=== PATIENT | female | born 1950 | race Asian ===

== ENCOUNTER 2021-08-12 11:55 | Emergency (ER) | payer OTHER, SELFPAY ==
[~2021-08-12] VITALS: Ht 152.4 cm; Wt 59.0 kg
--- NOTE | 2021-08-12 12:14 | NUR ---
PT AMBULATED TO ER BED 2 WITH A STEADY GAIT.
[2021-08-12 12:24] VITALS: BP 134/77
--- NOTE | 2021-08-12 12:30 | NUR ---
70 Y/O FEMALE C/O COUGH AND SUBJECTIVE FEVER X3DAYS. PT STATES SHE RECENTLY TRAVELLED TO [place]. DENIES N/V/D. DENIES PAIN. DENIES SOB. DENIES CHEST PAIN. PMH: HTN NKA
--- NOTE | 2021-08-12 12:59 | NUR ---
DR JAMES AT BEDSIDE EVALUATING PT
--- NOTE | 2021-08-12 13:27 | NUR ---
COLLECTED DEONTE RIDDLE, WALKED TO LAB.
[2021-08-12 13:28] VITALS: BP 134/77
--- NOTE | 2021-08-12 13:28 | NUR ---
Patient discharged with v/s stable. Written and verbal after care instructions given MEDICAL SCREENING EXAM and explained. Patient verbalized understanding. Ambulatory with steady gait. All questions addressed prior to discharge. Advised to follow up with PMD.
== END 2021-08-12 13:28 | disposition home or self-care (01) ==
LOC: MED 11:55
DX: Z00.00 Encounter for general adult medical examination without abnormal findings (principal); Z20.822 Contact with and (suspected) exposure to COVID-19; I10 Essential (primary) hypertension; Z98.890 Other specified postprocedural states; Z85.3 Personal history of malignant neoplasm of breast
CPT/HCPCS: 99283; U0003